=== PATIENT | female | born 1995 | race Caucasian/White ===

== ENCOUNTER 2016-11-09 05:28 | Day surgery (SDC) | payer OTHER ==
[~2016-11-09] VITALS: Ht 167.6 cm; Wt 68.0 kg
[2016-11-09 06:10] LABS: EOSINOPHIL (%) 3.4 % (0-5); EOSINOPHIL COUNT 0.2 K/uL (0-0.3); HEMATOCRIT 37.5 % (36.0-46.0); IMMATURE GRANULOCYTE (%) 0.2 % (0.0-0.7); LYMPHOCYTE COUNT 1.6 K/uL (1.0-2.8); MCH 30.8 PG (29.0-34.0); MCHC 34.1 G/DL (30.0-36.0); MCV 90.1 FL (83-99); MEAN PLAT.VOLUME 10.4 uM^3 (9.5-12.4); MONOCYTE (%) 10.7 % (3-12); MONOCYTE COUNT 0.6 K/uL (0-0.8); NEUTROPHIL (%) 58.2 % (45-76); NEUTROPHIL COUNT 3.5 K/uL (1.8-6.4); PLATELET COUNT 211 K/uL (156-360); RBC DIS.WIDTH-CV 12.9 % (11.8-14.6); RBC DIS.WIDTH-SD 41.5 % (39-53); RED BLOOD COUNT 4.16 M/uL (3.80-5.20)
[2016-11-09 06:17] VITALS: BP 110/63
[2016-11-09] MEDS ORDERED: MOTRIN800 MG PO (07:25)
[2016-11-09] MEDS ORDERED: VICODIN 5-3001 EACH PO (07:25)
[2016-11-09 09:08] VITALS: BP 111/65
[2016-11-09 09:43] VITALS: BP 105/60
== END 2016-11-09 09:50 | disposition home or self-care (01) ==
LOC: SDC 05:28
PROVIDERS: Obstetrics & Gynecology
PROC: 10D17ZZ Extraction of Products of Conception, Retained, Via Natural or Artificial Opening (ICD-10-PCS; principal; 2016-11-09)
DX: O02.1 Missed abortion (principal)
CPT/HCPCS: 85025; 86850; 86900; 86901; 88305; J1885; J2250; J2405; J3010

== ENCOUNTER → 2016-12-19 | Outpatient (CLI) | payer OTHER ==
[~2016-12-19] MED LIST: MOTRIN800 MG PO; VICODIN 5-3001 EACH PO
== END | disposition home or self-care (01) ==
LOC: RAD 11:28
DX: N96 Recurrent pregnancy loss (principal)
CPT/HCPCS: 74740

== ENCOUNTER 2017-12-06 16:57 | Outpatient (CLI) | payer OTHER, BC ==
[~2017-12-06] VITALS: Ht 167.6 cm; Wt 82.3 kg
[2017-12-06 17:31] VITALS: BP 120/75
[2017-12-06] MEDS ORDERED: CHILD ASPIRIN81 M1 PO (17:47)
[2017-12-06] MEDS ORDERED: PRENATAL TABLE1 EAC3 PO (17:48)
[2017-12-06] MEDS ORDERED: [UNRECOGNIZED DRUG - OTHER] PO (17:50)
== END 2017-12-06 18:45 | disposition home or self-care (01) ==
LOC: LDRP-OP 16:57 → 2WEST 16:58 → LDRP-OP 19:32
DX: O47.1 False labor at or after 37 completed weeks of gestation (principal); Z3A.39 39 weeks gestation of pregnancy
CPT/HCPCS: 59025; G0378

== ENCOUNTER 2017-12-07 21:54 | Inpatient (IN) | payer OTHER, BC ==
[~2017-12-07] VITALS: Ht 167.6 cm; Wt 83.6 kg
[~2017-12-07 21:54] MED LIST changes: +CHILD ASPIRIN81 M1 PO; +PRENATAL TABLE1 EAC3 PO; +[UNRECOGNIZED DRUG - OTHER] PO
[2017-12-07 22:16] VITALS: BP 122/84
[2017-12-07 23:49] VITALS: BP 135/74
[2017-12-08] VITALS (20 sets, daily range): BP systolic 107–135; BP diastolic 60–84
[2017-12-08 02:42] LABS: BASOPHIL (%) 0.3 % (0-1); BASOPHIL COUNT 0.1 K/uL (0-0.1); EOSINOPHIL (%) 1.2 % (0-5); EOSINOPHIL COUNT 0.2 K/uL (0-0.3); HEMATOCRIT 35.5 % (36.0-46.0); HEMOGLOBIN 12.1 G/DL (11.9-15.5); IMMATURE GRANULOCYTE (%) 0.4 % (0.0-0.7); LYMPHOCYTE (%) 16.8 % (15-42); LYMPHOCYTE COUNT 2.5 K/uL (1.0-2.8); MCH 28.9 PG (29.0-34.0); MCHC 34.1 G/DL (30.0-36.0); MCV 84.9 FL (83-99); MONOCYTE (%) 6.6 % (3-12); NEUTROPHIL (%) 74.7 % (45-76); PLATELET COUNT 209 K/uL (156-360); RBC DIS.WIDTH-CV 13.2 % (11.8-14.6); RBC DIS.WIDTH-SD 40.5 % (39-53); RED BLOOD COUNT 4.18 M/uL (3.80-5.20); WHITE BLOOD COUNT 14.8 K/uL (4.1-10.2)
[2017-12-08 03:28] LABS: BENZODIAZEPINES, URINE SCREEN Negative (200 ng/mL)
[2017-12-08 10:56] LABS: BASOPHIL (%) 0.3 % (0-1); BASOPHIL COUNT 0.1 K/uL (0-0.1); EOSINOPHIL (%) 0.1 % (0-5); HEMATOCRIT 33.5 % (36.0-46.0); HEMOGLOBIN 11.1 G/DL (11.9-15.5); IMMATURE GRANULOCYTE (%) 0.4 % (0.0-0.7); LYMPHOCYTE (%) 7.3 % (15-42); LYMPHOCYTE COUNT 1.3 K/uL (1.0-2.8); MCH 28.9 PG (29.0-34.0); MCHC 33.1 G/DL (30.0-36.0); MCV 87.2 FL (83-99); MONOCYTE (%) 6.8 % (3-12); MONOCYTE COUNT 1.2 K/uL (0-0.8); NEUTROPHIL (%) 85.1 % (45-76); NEUTROPHIL COUNT 15.4 K/uL (1.8-6.4); PLATELET COUNT 207 K/uL (156-360); RBC DIS.WIDTH-CV 13.5 % (11.8-14.6); RBC DIS.WIDTH-SD 42.3 % (39-53); RED BLOOD COUNT 3.84 M/uL (3.80-5.20); WHITE BLOOD COUNT 18.1 K/uL (4.1-10.2)
[2017-12-09] MEDS ORDERED: IBUPROFEN800 MG PO (09:50)
== END 2017-12-09 14:58 | disposition home or self-care (01) | DRG 775 ==
LOC: LDRP-OP 21:54 → 2WEST 21:56 → LDRP-OP 01-12 18:56
PROVIDERS: Midwife; Nurse Practitioner
DX: O70.0 First degree perineal laceration during delivery (principal); E72.12 Methylenetetrahydrofolate reductase deficiency; Z37.0 Single live birth; Z3A.39 39 weeks gestation of pregnancy; O99.284 Endocrine, nutritional and metabolic diseases complicating childbirth; O69.81X0 Labor and delivery complicated by cord around neck, without compression, not applicable or unspecified
CPT/HCPCS: 59025; 80306 90; 85025; 85025 91; C1755; G0378; J0595; J7120

== ENCOUNTER → 2017-12-13 | Outpatient (CLI) | payer OTHER, BC ==
[~2017-12-13] MED LIST changes: +IBUPROFEN800 MG PO
== END | disposition home or self-care (01) ==
LOC: LAC 11:59
DX: Z39.1 Encounter for care and examination of lactating mother (principal); O92.03 Retracted nipple associated with lactation
CPT/HCPCS: G0463